=== PATIENT | female | born 1960 | race Caucasian/White ===

== ENCOUNTER 2017-11-07 12:25 | Day surgery (SDC) | payer OTHER ==
[2017-11-03 11:51] VITALS: BMI 36.6
[~2017-11-07 12:25] MED LIST: LACTATED RINGERS 1,000 ML IV SCH; LIDOCAINE 1% 20 ML VIAL (10MG/ML) FOR IV START INTRADERMA PRN
[2017-11-07 13:32] VITALS: RESP 16; TEMP 97.7
[2017-11-07] MEDS ORDERED: LIDOCAINE 1% INJ 10MG/ML (20 ML MDV) ONE (13:55)
[2017-11-07] MEDS ORDERED: PROPOFOL 10 MG/ML 20 ML VIAL IV ONE (13:55)
--- NOTE | 2017-11-07 14:28 | P.PCN ---
Date of Procedure: 11/07/17 Procedure(s) Performed: Procedure: Total colonoscopy. Preoperative diagnosis: Screening for neoplasia. Postoperative diagnosis: Exam within normal limits. Preparation: HalfLytely prep. Sedation: Was provided by anesthesia. Brief clinical history: The patient is a 57-year-old female who is scheduled for this evaluation for screening for neoplasia. She had no prior examination or any family history of colon cancer. The patient has no abdominal complaints , bleeding or anemia. Procedure: With the patient on her left lateral decubitus position and after informed consent and adequate sedation, the perianal area was inspected and it did not show any fissures or fistulas. There were no masses felt on digital rectal examination. The Olympus CFQ 160L video colonoscope was then inserted in the rectum in the usual fashion and advanced to the cecum. The mucosa appeared healthy. No polyps or tumors were seen. There was a rare small diverticular orifice seen in the sigmoid. The patient tolerated the procedure well. Plan: The patient was reassured. She will follow-up with you as planned and I recommended repeat exam in 10 years.
[2017-11-07 14:54] VITALS: BP 126/82; PULSE 74
== END 2017-11-07 15:29 | disposition home or self-care (01) ==
LOC: ORWHC2ENDO 12:25
DX: Z12.11 Encounter for screening for malignant neoplasm of colon (principal); K57.30 Diverticulosis of large intestine without perforation or abscess without bleeding; I10 Essential (primary) hypertension; F39 Unspecified mood [affective] disorder; Z88.5 Allergy status to narcotic agent; Z88.0 Allergy status to penicillin; Z79.899 Other long term (current) drug therapy
CPT/HCPCS: 45378; J2001; J2704

== ENCOUNTER → 2021-01-30 | Outpatient (CLI) | payer OTHER ==
[2021-01-30 16:00] LABS: Basophils # (A) 0.1 k/uL (0-0.2); Basophils % (A) 1 %; Eosinophils # (A) 0.2 k/uL (0-0.7); Eosinophils % (A) 2 %; HCT 38.7 % (34.0-46.0); Lymphocytes # (A) 2.1 k/uL (1.0-4.8); Lymphocytes % (A) 22 %; MCH 30.4 pg (25.0-35.0); MCHC 33.5 g/dL (31.0-37.0); MCV 90.8 fL (80.0-100.0); Mean Platelet Volume 8.2; Monocytes # (A) 0.4 k/uL (0-1.0); Monocytes % (A) 4 %; Neutrophils # (A) 6.5 k/uL (1.3-7.7); Neutrophils % (A) 70 %; Platelet Count 284 k/uL (150-450); RBC 4.26 m/uL (3.80-5.40); RDW 14.6 % (11.5-15.5); WBC 9.4 k/uL (3.8-10.6)
[2021-01-30 16:03] LABS: African American GFR (CKD) >90 (>60 ml/min/1.73 sqM); Anion Gap 7 mmol/L; Blood Urea Nitrogen 28 mg/dL (7-17); Carbon Dioxide 29 mmol/L (22-30); Chloride 101 mmol/L (98-107); Glucose 97 mg/dL (74-99); Non-African American GFR(CKD) 80 (>60 ml/min/1.73 sqM); Potassium 3.8 mmol/L (3.5-5.1); Sodium 137 mmol/L (137-145)
== END | disposition home or self-care (01) ==
LOC: LABPAT 15:14
PROVIDERS: ATTEND Obstetrics & Gynecology
DX: Z01.812 Encounter for preprocedural laboratory examination (principal); N81.10 Cystocele, unspecified; N81.6 Rectocele
CPT/HCPCS: 36415; 80051; 82565; 82947; 84520; 85025; 87086; 93005

== ENCOUNTER 2021-02-09 08:42 | Day surgery (SDC) | payer OTHER ==
[2021-02-04 09:43] VITALS: BMI 36.6
--- NOTE | 2021-02-05 16:15 | HP ---
HISTORY AND PHYSICAL DATE OF SURGERY: 02/09/2021 This is a 60-year-old white female who is complaining of an increasing bulge per the perineal body. The patient denies urinary loss, but has to splint the perineal body for complete evacuation of the bowels. She is menopausal and not taking hormones. She has had no vaginal bleeding. She is requesting surgical repair, declining the option of pessary use. PAST MEDICAL HISTORY: Past medical history is significant for depression, diverticulosis, genital herpes, hypertension, hypothyroidism, menorrhagia, scarlet fever, vertigo. PAST SURGICAL HISTORY: Ectopic removal in 1987, uterine ablation for menorrhagia, colonoscopy, D and C. CURRENT MEDICATIONS: 1. Lipitor 20 mg daily. 2. Pristiq 50 mg daily. 3. Synthroid 75 mcg daily. 4. Amlodipine 10 mg tablets once daily. 5. Hydrochlorothiazide 25 mg tablets once daily. ALLERGIES: ALLERGIES include AMPICILLIN; reaction is not noted. FAMILY HISTORY: Significant for hypertension, mental illness, thyroid issues. REPRODUCTIVE HISTORY: Normal spontaneous vaginal deliveries x3, all unremarkable, missed AB requiring D and C in the past. Ectopic in 1987. 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 She has never been a smoker and denies alcohol or drug use. She is . PHYSICAL EXAMINATION: Patient is 5 feet 2-1/2 inches, 208 pounds, BMI 37, blood pressure 132/84, pulse 73. HEENT exam reveals good dentition, no thyromegaly, no cervical lymphadenopathy. Breasts are bilaterally symmetric with no skin dimpling, nipple discharge, axillary adenopathy or discernible lesions or masses. CHEST: Clear to auscultation in all gaspar anteriorly and posteriorly. Cardiac exam reveals regular rate and rhythm with no murmur, click or rub. Abdomen is moderately obese. No organosplenomegaly. Active bowel sounds. No pain. No CVA tenderness. External genitalia is well estrogenized. There is a grade 3 cystocele, a grade 2-3 rectocele, and a grade 3-4 uterine prolapse appreciated. Adnexa are negative to deep palpation. Rectal exam reveals good tone, FIT-negative stool. No hemorrhoids or lesions. Extremities reveal no edema, good range of motion, good peripheral pulses. IMPRESSION: Increasingly symptomatic uterine prolapse, cystocele and rectocele. Patient requesting surgical repair. The patient understands the risks of bleeding, infection, perforation or damage to the bladder, ureters, blood vessels, bowels, etc. The option of BSO is reviewed if the ovaries appear abnormal. The patient would consent to this pending my judgment. She understands the risks of anesthesia, aspiration, nerve damage or even . Second opinion is offered and declined. The ACOG pamphlet on pelvic organ prolapse has been given to the patient and reviewed thoroughly. I believe patient understands our discussion with no reservation or issues. MMODL / IJN: [id number] /
[~2021-02-09 08:42] MED LIST changes: +DEXAMETHASONE SOD PHOSPHATE 4 MG/ML 1 ML VIAL IV ONE; -LACTATED RINGERS 1,000 ML IV SCH; +LIDOCAINE 1% (10MG/ML) FOR IV START INTRADERMA PRN; -LIDOCAINE 1% 20 ML VIAL (10MG/ML) FOR IV START INTRADERMA PRN; +ONDANSETRON 4 MG/2 ML VIAL IVP ONE; +SCOPOLAMINE 1.5MG/72HR PATCH TRANSDERM ONE
[2021-02-09] MEDS: LACTATED RINGERS 1,000 ML IV SCH ×2 (09:24→22:07)
[2021-02-09] MEDS ORDERED: MIDAZOLAM 2 MG/2 ML VIAL IV ONE (10:07)
[2021-02-09] MEDS ORDERED: fentaNYL (PF) 50 MCG/ML 2 ML AMP ONE (10:19)
[2021-02-09] MEDS ORDERED: LIDOCAINE 1% INJ 10MG/ML (20 ML MDV) ONE (10:19)
[2021-02-09] MEDS ORDERED: NEOSTIGMINE 1 MG/ML 10 ML VIAL ONE (10:19)
[2021-02-09] MEDS ORDERED: SUCCINYLCHOLINE CHLORIDE 100 MG/5 ML SYR IV ONE (10:19)
[2021-02-09] MEDS ORDERED: PROPOFOL 10 MG/ML 20 ML VIAL IV ONE (10:19)
[2021-02-09] MEDS ORDERED: ROCURONIUM 10 MG/ML (5 ML VIAL) IV ONE (10:19)
[2021-02-09] MEDS ORDERED: GLYCOPYRROLATE 0.2 MG/ML 2 ML VIAL ONE (10:19)
[2021-02-09] MEDS ORDERED: VASOPRESSIN 20 UNIT/ML 1 ML VIAL SQ ONE ×2 (10:40)
[2021-02-09] MEDS ORDERED: BACITRACIN ZINC 500 UNIT/GM OINT 28.4 GM TUBE TOPICAL ONE ×2 (10:40→11:41)
[2021-02-09] MEDS: HYDROmorphone 0.5 MG/0.5 ML SYRINGE IVP PRN ×3 (12:10→22:01)
[2021-02-09] MEDS ORDERED: diphenhydrAMINE 50 MG/ML 1 ML VIAL ONE (12:13)
[2021-02-09] MEDS ORDERED: diphenhydrAMINE 50 MG/ML 1 ML VIAL IVP ONE (12:16)
[2021-02-09] MEDS ORDERED: ZOLPIDEM 5 MG TAB PO PRN (12:19)
[2021-02-09] MEDS ORDERED: KETOROLAC 15 MG/ML 1 ML VIAL IVP PRN (12:19)
[2021-02-09] MEDS ORDERED: SIMETHICONE 80 MG CHEWABLE PO PRN (12:19)
--- NOTE | 2021-02-09 12:19 | P.OP ---
Date of Procedure: 02/09/21 Preoperative Diagnosis: Increasingly symptomatic uterine prolapse, cystocele and rectocele Postoperative Diagnosis: Same, normal-appearing ovaries bilaterally Procedure(s) Performed: Vaginal hysterectomy, anterior and posterior colporrhaphy's Anesthesia: NELLYA Surgeon: Elicia Tejeda Raftsman #1: Britney Farmer Estimated Blood Loss (ml): 75 IV fluids (ml): 500 Urine output (ml): 500 Pathology: other (Cervix and uterus) Condition: stable Disposition: PACU Operative Findings: Normal-appearing ovaries bilaterally Description of Procedure: Patient is brought to the [facility] and suite after Duramorph spinal was placed in the preoperative area. She's placed in the dorsal lithotomy position after anesthesia is given. The appropriate timeout is performed to assure proper patient and procedural identification. The cervix, vagina, perineal body and lower abdomen are all prepped and draped in usual sterile fashion. Antibiotics are given. Bladder is drained for approximately 500 mL of clear yellow urine. Weighted speculum was placed into the vagina. Anterior lip of the cervix is grasped with a double-tooth tenaculum. Cervix is injected circumferentially with a dilute Pitressin solution. [place] blade scalpel is used circumferentially around the cervix with a V positioning at 6:00. Sponge rolled finger is used to sweep at all times well from the operative field to avoid bladder and/or ureteral injury. Peritoneum is entered at 6:00 and suture tied with 2-0 Vicryl, held with a hemostat. The large billed speculum is then placed into the peritoneal cavity. Again mucosa is swept well from the operative field. Uterosacral ligament on the right is identified, clamped cut and suture ligated. Sutures held with a hemostat. Same procedure is carried out contralaterally. Uterine vasculature is skeletonized, clamped cut and suture ligated. 2 additional pedicles are taken superior to the vessels. Anterior peritoneum was entered at 12:00 with a Metzenbaum scissor. Santi clamps are used across the final pedicles and the cervix and uterus are removed and sent to pathology for evaluation. The pedicles are tied with 0 Vicryl suture in a Darby stitch, flashed, and retied for excellent hemostasis. Sponge stick is then used and the pedicles are all visualized, ovaries are visualized, and all is hemostatically intact and within normal limits to inspection. Speculum is then changed to the shallow billed speculum. 2-0 Vicryl suture is brought around in a pursestring fashion to close the peritoneum. The previously held uterosacral ligaments are brought across to incorporate the opposite ligament as well as vaginal mucosa. 2 additional ocovwj-js-dmvyz sutures of 0 Vicryl are used to close the vaginal cuff. The anterior repair is then started, Allis clamps are used on the mucosal defect. The mucosa is injected in the midline with the same dilute Pitressin solution. Metzenbaum scissors are used to open the mucosa to approximate 1.5 cm inferior to the urethra. Seay catheter is then placed in the bladder is drained. Sponge rolled finger is used to separate the underlying fascial plane from the overlying mucosa. 2-0 Vicryl sutures used in an interrupted fashion to bring the fascial edges together in the midline thereby completely reducing the cystocele. Metzenbaum scissors are used to trim the redundant mucosa. 2-0 Vicryl suture is used in a running locking stitch to close the anterior repair for excellent reapproximation and hemostasis. A triangular portion of tissue is then removed with a scalpel and the posterior repair is started. The posterior vaginal mucosa was injected with the same dilute Pitressin solution. Metzenbaum scissors are used in the midline to open the mucosa to the apex of the defect. Allis clamps are used to hold the tissue bilaterally. Sponge rolled finger is used to sweep the fascial edge from the overlying mucosa. 2-0 Vicryl sutures used to bring the edges together, completely reducing the rectocele. Metzenbaum scissors are used to trim the redundant mucosa. 2-0 Vicryl is used in a running locking stitch to complete the repair with an episiotomy-like closure at the end. Vagina is clean and dry, packed with one-inch iodophor gauze with basic tracing. All sponge needle and enhancement counts are correct. Rectal exam reveals no foreign bodies or stitch material. Seay is still draining clear urine. Patient is brought back to recovery room in very good condition with stable vital signs including blood pressure 127/82, pulse 96, 100% O2 saturation.
--- NOTE | 2021-02-09 16:07 | P.ANPRN ---
Procedure Note - Anesthesia - Epidural/Spinal Spinal Date of Procedure: 02/09/21 Procedure Start Time: 09:14 Procedure Stop Time: :25 Location of Patient: OR Indication: Acute Post-Operative Pain Sedation Type: Sedate with meaningful contact maintained Preparation: Sterile Prep Number of Attempts: 1 Position: Sitting Catheter: None Needle Guage: 25 Injectate: Other (Duramorph 0.3mg & Fentanyl 25mcg) Narrative: Aseptic, atraumatic injection technique. Midline @ L3-4. 25g tuohy needle utilized. Clear, free flow of CSF noted. Blood Aspirated: No Pain Paresthesia on Injection Noted: No Events: Uneventful and Well Tolerated
[2021-02-09] MEDS: diphenhydrAMINE 50 MG/ML 1 ML VIAL IVP PRN (18:00)
[2021-02-09] MEDS: IBUPROFEN 600 MG TAB PO PRN (21:38)
[2021-02-09] MEDS: ONDANSETRON 4 MG/2 ML VIAL IVP PRN (22:03)
[2021-02-10] MEDS: diphenhydrAMINE 50 MG/ML 1 ML VIAL IVP PRN (02:38)
[2021-02-10] MEDS: METOCLOPRAMIDE 5 MG/ML 2 ML VIAL IVP PRN ×2 (02:38→08:08)
[2021-02-10] MEDS: ONDANSETRON 4 MG/2 ML VIAL IVP PRN (05:36)
[2021-02-10] MEDS ORDERED: ACETAMINOPHEN IV (For NPO) 1,000 MG in EMPTY BAG 1 BAG IVPB STA (07:33)
--- NOTE | 2021-02-10 08:07 | P.DS ---
Providers Date of admission: 02/09/21 Expected date of discharge: 02/10/21 Attending physician: Elicia Tejeda Primary care physician: [facility] Course: This is a 60-year-old white female who presented with increasingly symptomatic uterine prolapse, cystocele and rectocele. She requested surgical repair, declining option for pessary use. Please see dictated history and physical for details. Yesterday under my care she underwent a vaginal hysterectomy, anterior and posterior colporrhaphy. Vaginal packing was placed, Seay catheter placed. She did well intraoperatively with an estimated blood loss of 75 mL's. Ovaries were left in situ per her wishes. Please see my dictated operative note for details. Through the night patient had multiple bouts of emesis. This morning she is reporting a headache. There is no CVA tenderness, the abdomen is soft and nontender, positive flatus. Seay catheter and vaginal packing had been removed. We are awaiting a spontaneous void. Emesis is improved this morning after Zofran. We will proceed with dietary advancement, discontinuation of the IV, and increased activity including shower. My plan would be for discharge home later this afternoon when patient feels improved. She will follow-up with me in the office in 2 weeks. I reminded her no intercourse, tampons or douching. She will use tlqh-clw-eeszfix products such as Advil or Aleve, or Motrin as needed for pain. She is instructed to call with any fevers shakes or chills, foul smelling or bloody vaginal drainage, with difficulties with urination or defecation. She is reminded to keep the stools soft, not to strain at the commode. No driving for 2 weeks. Assessment: Doing well postoperative day #1 Patient Condition at Discharge: Good Plan - Discharge Summary Discharge Rx Participant: No New Discharge Prescriptions: No Action amLODIPine [Norvasc] 10 mg PO DAILY hydroCHLOROthiazide 50 mg PO HS Desvenlafaxine Succinate [Pristiq] 50 mg PO QAM Discharge Medication List Desvenlafaxine Succinate [Pristiq] 50 mg PO QAM 11/03/17 [History] amLODIPine [Norvasc] 10 mg PO DAILY 11/03/17 [History] hydroCHLOROthiazide 50 mg PO HS 11/03/17 [History] Follow up Appointment(s)/Referral(s): Elicia Tejeda MD [STAFF PHYSICIAN] - 2 Weeks Discharge Disposition: HOME SELF-CARE
[2021-02-10] MEDS ORDERED: DESVENLAFAXINE SUCCINATE 50 MG TAB.ER.24H PO SCH (09:00)
--- NOTE | 2021-02-10 09:01 | P.PN ---
Progress Note - Text Progress Note Date: 02/10/21 Patient seen at 0700. POD#1 TVH with GA/spinal duramorph for post-op pain management. Patient complains of headache that began in the middle of the night. VAS 6/10. Also complains of nausea which has persisted through the night. No complaints of surgical pain. Patient denies vomitting, diplopia and tinnitus. When seated on the side of the bed, patient felt dizzy and is uncertain about postural component to her headache. Discussed with patient at length regarding possible post-dural puncture headache due to history of placement of spinal duramorph. Discussed conservative management vs invasive management (blood patch) for PDPH. At this time would recommend conservative management for 24 hours inclusive of IV/oral hydration, caffeine intake and po analgesics as needed. If headache continues to persist or changes in nature that is more suggestive of PDPH (tinnitus, diplopia, postural change in headache) then will consider blood patch at that time. Will follow up as indicated.
--- NOTE | 2021-02-10 09:29 | P.PN ---
Progress Note - Text Progress Note Date: 02/10/21 Addendum to prior note: Spoke with RN taking care of the patient. She reports nausea/vomitting throughout the night. Patient unable to take in po hydration. With her history of nausea/vomitting, NPO statue and dizziness in upright position, headache would be more suggestive of symptom due to dehydration rather than PDPH. Recommend IV bolus of 500 mL, caffeine as tolerated and IV Zofran for the nausea and vomitting. If patient is not discharged today or headache becomes worse and symptoms more suggestive of PDPH occur, will consider blood patch tomorrow. Will follow up as indicated.
[2021-02-10] MEDS ORDERED: LACTATED RINGERS 1,000 ML IV SCH (10:30)
[2021-02-10] MEDS: IBUPROFEN 600 MG TAB PO PRN ×2 (11:55→18:19)
[2021-02-10] MEDS: ACETAMINOPHEN TAB 325 MG TAB PO PRN ×2 (15:58→21:47)
[2021-02-11] MEDS: IBUPROFEN 600 MG TAB PO PRN ×2 (01:22→06:30)
[2021-02-11] MEDS: ACETAMINOPHEN TAB 325 MG TAB PO PRN (03:54)
[2021-02-11] MEDS: LACTATED RINGERS 1,000 ML IV SCH (06:04)
[2021-02-11 07:40] VITALS: BP 132/77; PULSE 79; RESP 18; TEMP 97.9
== END 2021-02-11 08:00 | disposition home or self-care (01) ==
LOC: OR 08:42 → 4FBP 12:30 → OR 02-11 08:00
PROVIDERS: ATTEND Obstetrics & Gynecology
DX: N81.6 Rectocele (principal); N81.4 Uterovaginal prolapse, unspecified; N81.10 Cystocele, unspecified; N85.8 Other specified noninflammatory disorders of uterus; R11.10 Vomiting, unspecified; R50.9 Fever, unspecified; F41.9 Anxiety disorder, unspecified; R51.9 Headache, unspecified; R68.83 Chills (without fever)
CPT/HCPCS: 57250; 58260; 86900; 86901; 88305; 86850; J2250; J1200 ×2; J2710; J2765; J0690; J2405 ×2; J2001; J3010; J0131; J1885; J0330; J2704; J1170

== ENCOUNTER → 2021-04-23 | Outpatient (CLI) | payer OTHER ==
--- NOTE | 2021-04-23 16:24 | CONS ---
CONSULTATION DATE OF SERVICE: 04/23/2021 This 60-year-old lady has been evaluated in Sleep Center for possible obstructive sleep apnea-hypopnea syndrome. HISTORY OF PRESENT ILLNESS/SLEEP-WAKE EVALUATION: Patient's usual sleep schedule is from 10 p.m. to 5 a.m. on weekdays and from 1 a.m. until 9 a.m. on weekends. Sometimes she has problems with falling asleep, although no TV in bedroom. She usually sleeps on the side position. According to her , she has loud snoring, witnessed episodes of stopped breathing during sleep. The patient wakes up from sleep 3 times with 2 episodes of nocturia, episodes of gasping for air, restless legs, sweating. No history of hypnagogic hallucinations, sleep paralysis or cataplexy. In the morning the patient wakes up tired, has difficulties paying attention, worries about her sleep, has problems with memory, irritability, depression and anxiety. She may take one nap around 3 p.m. [place] Sleepiness Scale is 4. PAST MEDICAL HISTORY: Positive for hypertension, arthritis of the knees, hands and hips, hypothyroidism, headaches. MEDICATIONS: Amlodipine, Pristiq, thyroid supplement. Patient does not remember the doses of medications. PAST SURGICAL HISTORY: Hysterectomy. FAMILY HISTORY: Arthritis. SOCIAL HISTORY: Negative for smoking. Alcohol consumption occasional. REVIEW OF SYSTEMS: Multiple awakenings from sleep, snoring, gasping for air during sleep, episodes of sleepiness. No fevers. No double vision. No recent chest pain. No shortness of breath. No abdominal pain. No bleeding episodes. No blood in the urine. No seizure episodes. PHYSICAL EXAMINATION: GENERAL: Pleasant lady without distress. VITAL SIGNS: BP 116/83, HR 73, RR 15, height 5 feet 2 inches, weight 219.8, body mass index 39.1, temperature 97.5, oxygen saturation at room air 97%. HEENT: PERRLA, EOMI, evaluation of oropharynx showed tongue protrudes midline. Low position of soft palate; Mallampati III to IV. NECK: Supple, no JVD. Thyroid is not palpable. Neck measures 14-1/4 inches in circumference. LUNGS: Clear to percussion and to auscultation. Good air exchange. No wheezing or rhonchi. HEART: S1, S2 regular. No murmurs, gallops, or rubs. ABDOMEN: Obese. EXTREMITIES: No clubbing or cyanosis. ICE GUARD INSPECTOR: Awake, alert, and oriented X3. Cranial nerves 2 to 7 intact. There is no fasciculation or atrophy. noted. No focal deficits observed. IMPRESSION: 1. Loud snoring, witnessed episodes of stopped breathing during sleep, multiple awakenings from sleep with gasping for air and nocturia, low position of soft palate, Mallampati III to IV; obstructive sleep apnea-hypopnea syndrome. 2. Obesity; body mass index 39.1. 3. Restless legs syndrome. 4. Hypertension. 5. History of knee arthritis. 6. History of hip arthritis. 7. History of hand arthritis. 8. Hypothyroidism. 9. Headaches. 10.Status post hysterectomy. PLAN: 1. Polysomnography for evaluation of patient's breathing during sleep. 2. CPAP/BiPAP titration if sleep study confirms obstructive sleep apnea-hypopnea syndrome. 3. Preferable position during sleep on the side. 4. No driving if patient feels any sleepiness. 5. I will see patient for follow up visit to explain results of testing and following plan. Thank you very much for referring this patient for consultation. Sincerely, Cruz Samuels MD, PhD, FAASM Diplomat of [employer] [place] [employer] Sleep Medicine Board of [place] [facility] [place] MMODL / FRANCEN: [id number] /
== END | disposition home or self-care (01) ==
LOC: SLEEP 14:34
PROVIDERS: ATTEND Internal Medicine
DX: G47.33 Obstructive sleep apnea (adult) (pediatric) (principal); E66.9 Obesity, unspecified; G25.81 Restless legs syndrome; I10 Essential (primary) hypertension; E03.9 Hypothyroidism, unspecified; R51.9 Headache, unspecified
CPT/HCPCS: 99211

== ENCOUNTER → 2021-09-10 | Outpatient (CLI) | payer OTHER ==
--- NOTE | 2021-09-10 19:05 | SFUN ---
SLEEP CENTER FOLLOW UP NOTE DATE OF SERVICE: 09/10/2021 This 61-year-old lady has been followed in Sleep Center for treatment of obstructive sleep apnea-hypopnea syndrome. Recently the patient had a polysomnogram which documented moderate obstructive sleep apnea-hypopnea syndrome, and she had CPAP titration. Subsequently I ordered for her a CPAP unit. Today is her first visit after her CPAP therapy was started. The patient is able to use CPAP treatment. She sleeps better with the machine, but she still does not feel comfortable with her mask. Currently she is using a full-face mask. [place] Sleepiness Scale today is 6. I checked information about her machine. Usage is 23/ nights for more than 4 hours, average 7 hours 56 minutes, which is good compliance. Pressure in the machine is in the range of 5 to 12 cm of water, average pressure 11.9 cm of water. Leak is 4.6 L/minute 95% of the time, which is in normal range. Apnea-hypopnea index is 4.0, which is in normal range. I extensively discussed with the patient recommendations for using her CPAP unit. MEDICATIONS: Amlodipine, Pristiq, thyroid supplement. PHYSICAL EXAMINATION: GENERAL: Pleasant patient in no distress. VITAL SIGNS: BP 118/76, HR 81, RR 16, weight 238.4, height 5 feet 2 inches, temperature 97.4, oxygen saturation at room air 98%. HEENT: PERRLA, EOMI, evaluation of oropharynx showed tongue protrudes midline. Low position of soft palate; Mallampati III to IV. NECK: Supple, no JVD. Thyroid is not palpable. LUNGS: Clear to percussion and to auscultation. Good air exchange. No wheezing or rhonchi. HEART: S1, S2 regular. No murmurs, gallops, or rubs. ABDOMEN: Obese. EXTREMITIES: No clubbing or cyanosis. SAWSMITH: Awake, alert, and oriented X3. Cranial nerves 2 to 7 intact. There is no fasciculation or atrophy. noted. No focal deficits observed. IMPRESSION: 1. Moderate obstructive sleep apnea-hypopnea syndrome; apnea-hypopnea index 15.6, 56 in REM sleep with oxygen desaturation to 58.8%. Patient demonstrated good compliance with treatment, benefitting from treatment. She feels some discomfort related to her mask. 2. Hypertension. 3. History of knee arthritis. 4. Hypothyroidism. 5. Headaches. 6. Status post hysterectomy. PLAN: 1. I discussed with the patient the position of the machine and usage of humidifier. 2. Prescription for a trial with a nasal pillow mask, AirFit P10. 3. Patient will continue to use PAP equipment every night for the whole night. 4. Sleep hygiene with regular time in bed for at least 7-1/2 to 8 hours. 5. Precautions related to driving. No driving if feeling sleepiness. 6. I will maintain all necessary prescription for PAP supplies including mask, tube, filters. 7. Watching weight. 8. Follow-up visit in 6 months or earlier if patient has any problems. Thank you very much for allowing me to participate in the management of your patient. Sincerely, Cruz Samuels MD, PhD, FAASM Diplomat of [place] [employer] Sleep Medicine Board of [place] [employer] [facility] [place] MMAISHAL / FRANCEN: [id number] /
== END ==
LOC: SLEEP 13:41
PROVIDERS: ATTEND Internal Medicine
DX: G47.33 Obstructive sleep apnea (adult) (pediatric) (principal); I10 Essential (primary) hypertension; E03.9 Hypothyroidism, unspecified; R51.9 Headache, unspecified; Z87.39 Personal history of other diseases of the musculoskeletal system and connective tissue; Z90.711 Acquired absence of uterus with remaining cervical stump

== ENCOUNTER 2021-09-16 08:36 | Observation (INO) | payer OTHER ==
[2021-09-16] MEDS ORDERED: KETOROLAC 15 MG/ML 1 ML VIAL IVP STA (09:24)
--- NOTE | 2021-09-16 09:52 | ED ---
Chest Pain HPI - General Chief Complaint: Chest Pain Stated Complaint: Upper Abd Pain Time Seen by Provider: 09/16/21 08:57 Source: patient, RN notes reviewed Mode of arrival: ambulatory Limitations: no limitations - History of Present Illness Initial Comments: 7-year-old female presents with complaints of epigastric pain that started last night mid epigastric with some radiation to the left breast area also to the back she has a difficult time describing the nature of the pain however she states it is as bad as it as a/10 pain. He felt a bubble she states in the midepigastrium she has no known history of heart lung or gallbladder disease that she does have a history of GERD. Acid was 6 AM yesterday morning no nausea vomiting no shortness of breath as he seems to make the pain better food does seem irritated. MD Complaint: chest pain, other - Related Data Home Medications Medication Instructions Recorded Confirmed Desvenlafaxine Succinate [Pristiq] 50 mg PO DAILY 11/03/17 09/16/21 amLODIPine [Norvasc] 10 mg PO DAILY 11/03/17 09/16/21 Famotidine [Pepcid AC] 10 mg PO BID PRN 09/16/21 09/16/21 Levothyroxine Sodium [Synthroid] 75 mcg PO DAILY 09/16/21 09/16/21 hydroCHLOROthiazide [Hydrodiuril] 25 mg PO DAILY 09/16/21 09/16/21 Allergies Allergy/AdvReac Type Severity Reaction Status Date / Time ampicillin Allergy Rash/Hives Verified 09/16/21 11:08 codeine AdvReac Nausea & Verified 09/16/21 11:08 Vomiting steroid AdvReac "made me Uncoded 09/16/21 08:41 aggresive" Review of Systems ROS Statement: Those systems with pertinent positive or pertinent negative responses have been documented in the HPI. ROS Other: All systems not noted in ROS Statement are negative. EKG Findings - EKG Results: EKG: interpreted by SANKET, sinus rhythm (Sinus rhythm a 68. We'll 176 QRS duration 118 QT since QTC 470/434 moderate interventricular conduction delay) Past Medical History Past Medical History: Hypertension Additional Past Medical History / Comment(s): anxiety History of Any Multi-Drug Resistant Organisms: None Reported Past Surgical History: Tubal Ligation Additional Past Surgical History / Comment(s): sx for ovarian cysts Past Anesthesia/Blood Transfusion Reactions: Postoperative Nausea & Vomiting (PONV) Past Psychological History: Anxiety, Panic Disorder Smoking Status: Never smoker Past Alcohol Use History: Occasional Past Drug Use History: None Reported - Past Family History Mother Family Medical History: No Reported History General Exam - General Exam Comments Initial Comments: This is a well-developed well-nourished awake alert oriented 3 female Limitations: no limitations General appearance: alert, anxious Head exam: Present: atraumatic, normocephalic, normal inspection Eye exam: Present: normal appearance, PERRL, EOMI. Absent: scleral icterus, conjunctival injection, periorbital swelling ENT exam: Present: normal exam, mucous membranes moist Neck exam: Present: normal inspection, full ROM, other. Absent: tenderness, meningismus, lymphadenopathy Respiratory exam: Present: normal lung sounds bilaterally. Absent: respiratory distress, wheezes, rales, rhonchi, stridor Cardiovascular Exam: Present: regular rate, normal rhythm, normal heart sounds. Absent: systolic murmur, diastolic murmur, rubs, gallop, clicks GI/Abdominal exam: Present: soft, normal bowel sounds. Absent: distended, tenderness, guarding, rebound, rigid, bruit (No stridor JVD or bruits), pulsatile mass Extremities exam: Present: normal inspection, full ROM, normal capillary refill. Absent: tenderness, pedal edema, joint swelling, calf tenderness Back exam: Present: normal inspection Neurological exam: Present: alert, oriented X3, CN II-XII intact Psychiatric exam: Present: normal affect, normal mood Skin exam: Present: warm, dry, intact, normal color. Absent: rash Course Vital Signs 09/16/21 09/16/21 08:38 10:31 Temperature 96.9 F L 97.4 F L Pulse Rate 84 61 Respiratory 18 18 Rate Blood Pressure 134/87 123/83 O2 Sat by Pulse 98 98 Oximetry Chest Pain MDM - MDM Imaging reviewed including ultrasound negative patient still has episodes of pain with radiation I did a long discussion with her regarding the findings cardiac disease as not ruled out as well as GI disease I did recommend we admit with consults from both services. Patient is in agreement patient will be admitted to the [facility] as it is a observation bed. Disposition Clinical Impression: Atypical chest pain, Abdominal pain Disposition: ADMITTED IP TO THIS HOSP Condition: Fair Referrals: Ashlee Celestin III, MD [Primary Care Provider] - 1-2 days
[2021-09-16 09:53] LABS: Basophils % (A) 1 %; Eosinophils # (A) 0.2 k/uL (0-0.7); Eosinophils % (A) 2 %; HCT 41.5 % (34.0-46.0); HGB 13.4 gm/dL (11.4-16.0); Lymphocytes # (A) 1.5 k/uL (1.0-4.8); Lymphocytes % (A) 17 %; MCH 29.3 pg (25.0-35.0); MCHC 32.3 g/dL (31.0-37.0); MCV 90.7 fL (80.0-100.0); Mean Platelet Volume 7.8; Monocytes # (A) 0.4 k/uL (0-1.0); Monocytes % (A) 5 %; Neutrophils # (A) 6.4 k/uL (1.3-7.7); Neutrophils % (A) 75 %; Platelet Count 266 k/uL (150-450); RBC 4.58 m/uL (3.80-5.40); RDW 14.3 % (11.5-15.5); WBC 8.6 k/uL (3.8-10.6)
--- NOTE | 2021-09-16 09:54 | XR ---
EXAMINATION TYPE: XR chest 2V DATE OF EXAM: 09/16/2021 COMPARISON: NONE HISTORY: Chest pain. TECHNIQUE: Frontal and lateral views of the chest are obtained. FINDINGS: There is no focal air space opacity, pleural effusion, or pneumothorax seen. The cardiac silhouette size is within normal limits. Slight underlying scoliotic curvature. IMPRESSION: No acute process.
[2021-09-16 10:06] LABS: Partial Thromboplastin Time 24.4 sec (22.0-30.0); Prothrombin Time 10.4 sec (9.0-12.0)
[2021-09-16 10:13] LABS: ALT 24 U/L (4-34); African American GFR (CKD) >90 (>60 ml/min/1.73 sqM); Albumin 4.3 g/dL (3.5-5.0); Anion Gap 10 mmol/L; Blood Urea Nitrogen 14 mg/dL (7-17); Calcium 8.8 mg/dL (8.4-10.2); Carbon Dioxide 24 mmol/L (22-30); Chloride 104 mmol/L (98-107); Glucose 88 mg/dL (74-99); Lipase 49 U/L (23-300); Non-African American GFR(CKD) >90 (>60 ml/min/1.73 sqM); Sodium 138 mmol/L (137-145); Total Bilirubin 0.8 mg/dL (0.2-1.3); Total Protein 7.5 g/dL (6.3-8.2)
[2021-09-16 10:22] LABS: Potassium 4.1 mmol/L (3.5-5.1)
[2021-09-16 10:23] LABS: AST 31 U/L (14-36); Alkaline Phosphatase 114 U/L (38-126); Magnesium 2.1 mg/dL (1.6-2.3)
[2021-09-16] MEDS ORDERED: NITROGLYCERIN SL TABS 0.4 MG TAB SUBLINGUAL STA (10:36)
[2021-09-16] MEDS ORDERED: FAMOTIDINE 20 MG/2 ML VIAL IV STA (11:39)
[2021-09-16] MEDS ORDERED: MAG HYDROX/AL HYDROX/SIMETH 30 ML, HYOSCYAMINE ELIXIR 10 ML, LIDOCAINE VISCOUS 2% 10 ML PO STA ×3 (11:39)
--- NOTE | 2021-09-16 12:38 | US ---
EXAMINATION TYPE: US gallbladder DATE OF EXAM: 09/16/2021 COMPARISON: NONE CLINICAL HISTORY: Epigastric pain. EC patient with severe epigastric pain/ LUQ pain today. EXAM MEASUREMENTS: Liver Length: 11.8 cm Gallbladder Wall: 0.3 cm CBD: 0.5 cm Right Kidney: 10.2 x 7.0 x 4.3 cm Pancreas: hyperechoic Liver: no masses seen Gallbladder: wnl Evidence for sonographic Ulloa's sign: no CBD: wnl Right Kidney: No hydronephrosis or masses seen At LUQ area of pain: bowel gas is noted by US. Visualized pancreas appears within normal limits. Visualized liver is homogeneous without worrisome m ass or ductal dilatation. No Biliary dilatation. Gallbladder within normal limits. No right-sided hyd ronephrosis. Scanning of the left upper quadrant shows shadowing bowel gas. IMPRESSION: No gallstones or ultrasound evidence for acute cholecystitis.
[2021-09-16] MEDS ORDERED: NITROGLYCERIN SL TABS 0.4 MG TAB SUBLINGUAL PRN (15:16)
[2021-09-16] MEDS ORDERED: FAMOTIDINE 20 MG TAB PO PRN (16:34)
[2021-09-16] MEDS ORDERED: ACETAMINOPHEN TAB 325 MG TAB PO PRN (16:36)
[2021-09-16] MEDS ORDERED: MAG HYDROX/AL HYDROX/SIMETH 30 ML, HYOSCYAMINE ELIXIR 10 ML, LIDOCAINE VISCOUS 2% 10 ML PO ONE ×3 (17:07)
[2021-09-16] MEDS ORDERED: PROCHLORPERAZINE INJ 10 MG/2 ML VIAL IVP PRN (17:08)
[2021-09-16] MEDS: SODIUM CHLORIDE 0.9% 1,000 ML IV SCH (17:19)
[2021-09-16] MEDS ORDERED: MORPHINE SULFATE 4 MG/ML SYRINGE IV PRN (17:29)
--- NOTE | 2021-09-16 17:29 | P.HPIM ---
History of Present Illness H&P Date: 09/16/21 History of Presenting Illness: Patient is a very pleasant 61-year-old female with a past medical history of hypertension, hypothyroidism, anxiety and GERD. She presented to the emergency department with epigastric pain/discomfort radiating beneath left breast. Patient reports she has a history of gastric reflux, but states she has not had a problem with this in many many years. She states over the past 4-5 weeks her heartburn and acid reflux has literally "Blown up". Patient states over the past 4-5 weeks she has been getting significant reflux and heartburn daily. Timo garduno reports yesterday morning starting out like an atypical morning, states that she ate a bowl of cereal and drinks some coffee and went to work. Patient states that shortly after 6 AM she began having the significant sharp burning pain to the mid epigastric region. Patient reports this pain has been continuous and accompanied by nausea. Patient describes this pain as a burning sensation that will not go away. She states this pain feels as if it goes straight through to her back and just beneath her left breast. She denies any fevers, chills, diaphoresis, episodes of vomiting, excessive belching, chest pain, palpitations, shortness of breath, or cough. Patient denies history of previously known ulcers. Denies palpation or movement making this pain worse, pt unclear whether or not pain increases with oral intake. In the emergency department, patient was seen and fully evaluated. EKG completed revealing normal sinus rhythm at 68 bpm with no noted T-wave or ST abnormalities. CBC, coags, CMP, lipase, d-dimer, and troponin all unremarkable. Chest x-ray negative for acute cardiopulmonary process. Abdominal ultrasound the gallbladder negative showing no evidence of gallstones or signs of acute cholecystitis. Patient received a GI cocktail in ER at 11:00 this morning in w [place] she reports did "take the edge off" her pain. Patient is currently admitted under our services with consultation to cardiology and gastroenterology. Review of systems: Pertinent positives and negatives as discussed in HPI, a complete review of systems was performed and all other systems are negative. Physical exam: Vital signs reviewed and stable. General: Nontoxic, no distress and appears stated age. Derm: Skin warm and dry, normal coloration for ethnicity. Head: Atraumatic, normocephalic and symmetric. Eyes: EOMs intact, no lid lag, and anicteric sclera Mouth: no lip lesions, mucus membranes moist Cardiovascular: regular rate and rhythm with normal S1S2, no murmur, positive posterior tibial pulses bilaterally, and cap refill < 2 seconds. Lungs: Respirations even, regular, and unlabored on room air. Lungs CTA bilaterally, no rhonchi, no rales, no wheezing, and no accessory muscle usage. Abdominal: soft obese abdomen , nontender to palpation, no guarding, no apprecia ble organomegaly Ext: ROM intact. No gross muscle atrophy, patient with slight bilateral lower extremity edema (reports chronic denies any increase or changes in swelling in years) no contractures Neuro: Speech clear, face symmetrical and CN II-XII grossly intact with no noted focal neuro deficits Psych: Alert and oriented to person, place, time, and situation. Appropriate and pleasant affect. Assessment and Plan of Care: Epigastric pain History of GERD -Cardiology consulted to rule out ACS -Gastroenterology consulted secondary to concerns of possible ulcer -Telemetry monitoring -Trend troponins -NPO with the exception of ice chips and medications pending evaluation by GI -Protonix 40 mg IVP twice daily, Carafate 1 g before meals at bedtime -Lipid profile with a.m. labs. -Gentle hydration with IV fluids Hypertension -Monitor vital signs and continue daily medication regimen with amlodipine. Hypothyroidism -Continue daily medication regimen with levothyroxine 75 g each morning. The patient is admitted with an anticipated less than 2 midnight stay for evaluation of epigastric pain CODE STATUS: Full code DVT prophylaxis: Heparin Discussed with: Patient and RN Anticipated discharge date: 1-[address]:: Home A total of 40 minutes was spent on the care of this complex patient more than 50% of the time was spent in counseling and care coordination. Patient seen and examined independently. Patient was also seen by Baljit Flores NP and case was discussed. I am in agreement with subjective, physical exam, assessment and plan as written above and amended below. Patient states that she's been having acid reflux for approximately one month it is worsening in nature. It causes her to double over in pain. In today her pain was unbearable. 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 General: non toxic, no distress, appears at stated age Derm: warm, dry Head: atraumatic, normocephalic, symmetric Eyes: EOMI, no lid lag, anicteric sclera Mouth: no lip lesion, mucus membranes moist Cardiovascular: S1S2 reg, no murmur, positive posterior tibial pulse bilateral, Lungs: CTA bilateral, no rhonchi, no rales , no accessory muscle use Abdominal: soft, + tender to palpation epigastric, no guarding, no appreciable organomegalyactures] Neuro: CN II-XI grossly intact, no focal neuro deficits Psych: Alert, oriented, appropriate affect Past Medical History Past Medical History: GERD/Reflux, Hypertension, Sleep Apnea/CPAP/BIPAP, Thyroid Disorder Additional Past Medical History / Comment(s): PAUL with Cpap use, diverticular disease, migraines, hypothyroid. History of Any Multi-Drug Resistant Organisms: None Reported Past Surgical History: Hysterectomy, Tubal Ligation Additional Past Surgical History / Comment(s): D&C, surgery for ectopic /ovarian cyst, uterine ablation, vaginal hysterectomy with cystocele /rectocele, colonoscopy Past Anesthesia/Blood Transfusion Reactions: Postoperative Nausea & Vomiting (PONV) Additional Past Anesthesia/Blood Transfusion Reaction / Comment(s): Severe PONV. Clausterphobia. Past Psychological History: Anxiety, Depression, Panic Disorder Additional Psychological History / Comment(s): Pt resides alone. She is independent. Smoking Status: Never smoker Past Alcohol Use History: Occasional Past Drug Use History: None Reported - Past Family History Mother Family Medical History: No Reported History Additional Family Medical History / Comment(s): Mother is 93 yrs old and healthy Father History Unknown: Yes Additional Family Medical History / Comment(s): Father in a MVA when pt was 5 yrs old. Medications and Allergies Home Medications Medication Instructions Recorded Confirmed Type Desvenlafaxine Succinate [Pristiq] 50 mg PO DAILY 11/03/17 09/16/21 History amLODIPine [Norvasc] 10 mg PO DAILY 11/03/17 09/16/21 History Famotidine [Pepcid AC] 10 mg PO BID PRN 09/16/21 09/16/21 History Levothyroxine Sodium [Synthroid] 75 mcg PO DAILY 09/16/21 09/16/21 History hydroCHLOROthiazide [Hydrodiuril] 25 mg PO DAILY 09/16/21 09/16/21 History Allergies Allergy/AdvReac Type Severity Reaction Status Date / Time ampicillin Allergy Rash/Hives Verified 09/16/21 11:08 codeine AdvReac Nausea & Verified 09/16/21 11:08 Vomiting steroid AdvReac "made me Uncoded 09/16/21 08:41 aggresive" Physical Exam Osteopathic Statement: *. No significant issues noted on an osteopathic structural exam other than those noted in the History and Physical/Consult. Vitals: Vital Signs Temp Pulse Resp BP Pulse Ox 09/16/21 10:31 97.4 F L 61 18 123/83 98 09/16/21 08:38 96.9 F L 84 18 134/87 98 Intake and Output 09/16/21 09/16/21 09/16/21 06:59 14:59 22:59 Other: Weight 99.79 kg 99.79 kg Results CBC & Chem 7: 09/16/21 09:21 09/16/21 09:21 Thrombosis Risk Factor Assmnt - Choose All That Apply Any of the Below Risk Factors Present?: Yes Each Factor Represents 1 point: Age 41-60 years, Obesity (BMI >25) Other Risk Factors: No Other congenital or acquired thrombophilia - If yes, enter type in comment: No Thrombosis Risk Factor Assessment Total Risk Factor Score: 2 Thrombosis Risk Factor Assessment Level: Low Risk
[2021-09-16 17:52] LABS: Appearance,Urine Cloudy (Clear); Bilirubin,Urine Negative (Negative); Blood,Urine Negative (Negative); Color,Urine Light Yellow; Glucose,Urine (UA) Negative (Negative); Ketones,Urine Negative (Negative); Leukocyte Esterase,Urine Moderate (Negative); Mucus,Urine Rare /hpf; Nitrite,Urine Negative (Negative); PH, Urine 7.5 (5.0-8.0); Protein,Urine Negative (Negative); RBC,Urine 1 /hpf (0-5); Squamous Epithelial Cell,Urine 10 /hpf (0-4); Urobilinogen,Urine <2.0 mg/dL (<2.0); WBC,Urine 11 /hpf (0-5)
[2021-09-16] MEDS: SUCRALFATE 1 GM TAB PO SCH ×2 (17:52→20:55)
[2021-09-16] MEDS ORDERED: LORazepam 2 MG/ML INJ IV STA (18:16)
[2021-09-16] MEDS: PANTOPRAZOLE 40 MG/10 ML VIAL IVP SCH (20:55)
[2021-09-17] MEDS: HEPARIN SODIUM,PORCINE/PF 5,000 UNIT/0.5 ML SYRINGE SQ SCH ×2 (00:41→08:46)
[2021-09-17] MEDS: SODIUM CHLORIDE 0.9% 1,000 ML IV SCH ×2 (00:41→12:24)
[2021-09-17] MEDS ORDERED: LEVOTHYROXINE 75 MCG TAB PO SCH (06:30)
[2021-09-17 07:50] VITALS: BP 138/86; PULSE 68; RESP 16; TEMP 97.6
--- NOTE | 2021-09-17 08:21 | P.CRDCN ---
History of Present Illness History of present illness: HISTORY OF PRESENTING ILLNESS This is a pleasant 61-year-old female past medical history significant for GERD, hypertension, hypothyroidism. 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 We have been asked to see in consultation for chest pain. Patient presents to the emergency department with complaints of chest discomfort. Chest pain started 09/15/21. Located in epigastric region. It lasted for 24 hours. She describes it as a pressure. It is nonexertional. It did radiate to her left breast. She continues to have some mild chest discomfort and epigastric reason describes it as a numb feeling. No specific aggravating or alleviating factors. She does endorse having reflux and heart burn over the past month. Prior to her pain starting she states she had cereal and coffee. She did have some associated nausea. She denies shortness of breath, palpitations, vomiting, diaphoresis, l ightheadedness, syncope. She denies history of CAD, PR, stroke, diabetes. She is unsure of her family history. She denies any tobacco use. DIAGNOSTICS EKG reveals sinus rhythm, heart rate 68, T wave inversion in V2, non-specific ST in aVL, poor R-wave progression, no acute ST-T wave abnormalities Telemetry tracings indicate sinus mechanism Gallbladder ultrasound with no acute findings, no gallstones Chest xray no acute cardio pulmonary process Laboratory reviewed, CBC unremarkable, d-dimer negative, troponin negative 3, proBNP 34, sodium 138, potassium 4.1, BUN 14, serum creatinine 0.7 Current home medications include hydrochlorothiazide 25 mg daily, amlodipine 10 mg daily, Synthroid, Pristiq, Pepcid. REVIEW OF SYSTEMS At the time of my exam: CONSTITUTIONAL: Denies fever or chills. CARDIOVASCULAR: +dull/numb chest pain, Denies shortness of breath, orthopnea, PND or palpitations. RESPIRATORY: Denies cough. GASTROINTESTINAL: Denies abdominal pain, diarrhea, constipation, nausea or vomiting. MUSCULOSKELETAL: Denies myalgias. NEUROLOGIC: Denies numbness, tingling, headache or weakness. ENDOCRINE: Denies fatigue, weight change, polydipsia or polyurina. GENITOURINARY: Denies burning, hematuria or urgency with micturation. HEMATOLOGIC: Denies history of anemia or bleeding. PHYSICAL EXAMINATION Blood pressure 138/86, heart rate 68, afebrile, oxygen saturation is 96% on room air CONSTITUTIONAL: No apparent distress. HEENT: Head is normocephalic. Pupils are equal, round. Sclerae anicteric. Mucous membranes of the mouth are moist. No JVD. No carotid bruit. CHEST EXAMINATION: Lungs are clear to auscultation. No chest wall tenderness is noted on palpation or with deep breathing. HEART EXAMINATION: Regular rate and rhythm. S1, S2 heard. No murmurs, gallops or rub. ABDOMEN: Soft, nontender. Positive bowel sounds. EXTREMITIES: 2+ peripheral pulses, no lower extremity edema and no calf tenderness. SKIN: warm, dry NEUROLOGIC EXAMINATION: Patient is awake, alert and oriented x3. ASSESSMENT Epigastric Pain, acute coronary syndrome has been ruled out History of GERD Hypertension Hyperthyroidism Obesity BMI 40 PLAN An acute coronary event has been ruled out with no EKG evidence of ischemia and negative cardiac enzymes. Lipid panel pending Perform stress echo test to assess for stress induced cardiac ischemia. If abnormal will consider coronary angiography. If stress test is negative, no further inpatient workup for chest discomfort from a cardiology perspective. Thank you kindly for this consultation. Nurse practitioner note has been reviewed by physician. Signing provider agrees with the documented findings, assessment, and plan of care. Past Medical History Past Medical History: GERD/Reflux, Hypertension, Sleep Apnea/CPAP/BIPAP, Thyroid Disorder Additional Past Medical History / Comment(s): PAUL with Cpap use, diverticular disease, migraines, hypothyroid. History of Any Multi-Drug Resistant Organisms: None Reported Past Surgical History: Hysterectomy, Tubal Ligation Additional Past Surgical History / Comment(s): D&C, surgery for ectopic /ovarian cyst, uterine ablation, vaginal hysterectomy with cystocele/rectocele, colonoscopy Past Anesthesia/Blood Transfusion Reactions: Postoperative Nausea & Vomiting (PONV) Additional Past Anesthesia/Blood Transfusion Reaction / Comment(s): Severe PONV. Clausterphobia. Past Psychological History: Anxiety, Depression, Panic Disorder Additional Psychological History / Comment(s): Pt resides alone. She is independent. Smoking Status: Never smoker Past Alcohol Use History: Occasional Past Drug Use History: None Reported - Past Family History Mother Family Medical History: No Reported History Additional Family Medical History / Comment(s): Mother is 93 yrs old and healthy Father History Unknown: Yes Additional Family Medical History / Comment(s): Father in a MVA when pt was 5 yrs old. Medications and Allergies Home Medications Medication Instructions Recorded Confirmed Type Desvenlafaxine Succinate [Pristiq] 50 mg PO DAILY 11/03/17 09/16/21 History amLODIPine [Norvasc] 10 mg PO DAILY 11/03/17 09/16/21 History Famotidine [Pepcid AC] 10 mg PO BID PRN 09/16/21 09/16/21 History Levothyroxine Sodium [Synthroid] 75 mcg PO DAILY 09/16/21 09/16/21 History hydroCHLOROthiazide [Hydrodiuril] 25 mg PO DAILY 09/16/21 09/16/21 History Allergies Allergy/AdvReac Type Severity Reaction Status Date / Time ampicillin Allergy Rash/Hives Verified 09/16/21 11:08 codeine AdvReac Nausea & Verified 09/16/21 11:08 Vomiting steroid AdvReac "made me Uncoded 09/16/21 08:41 aggresive" Physical Exam Vitals: Vital Signs Temp Pulse Pulse Resp BP BP Pulse Ox 09/17/21 02:00 70 18 09/17/21 01:56 97.8 F 74 16 120/73 96 09/16/21 21:00 70 18 09/16/21 19:56 97.7 F 86 17 153/81 98 09/16/21 19:00 65 143/82 09/16/21 16:58 64 18 143/82 98 09/16/21 16:00 62 123/83 09/16/21 10:31 97.4 F L 61 18 123/83 98 09/16/21 08:38 96.9 F L 84 18 134/87 98 Intake and Output 09/16/21 09/17/21 09/17/21 22:59 06:59 14:59 Intake Total 0 Balance 0 Intake: Oral 0 Other: Voiding Method Toilet # Voids 1 Weight 99.79 kg Results 09/16/21 09:21 09/16/21 09:21 Cardiac Enzymes 09/16/21 09/16/21 09/16/21 Range/Units 09:21 09:21 16:08 AST 31 (14-36) U/L Troponin I <0.012 <0.012 (0.000-0.034) ng/mL 09/16/21 Range/Units 18:41 AST (14-36) U/L Troponin I <0.012 (0.000-0.034) ng/mL Coagulation 09/16/21 Range/Units 09:21 PT 10.4 (9.0-12.0) sec APTT 24.4 (22.0-30.0) sec CBC 09/16/21 Range/Units 09:21 WBC 8.6 (3.8-10.6) k/uL RBC 4.58 (3.80-5.40) m/uL Hgb 13.4 (11.4-16.0) gm/dL Hct 41.5 (34.0-46.0) % Plt Count 266 (150-450) k/uL Comprehensive Metabolic Panel 09/16/21 Range/Units 09:21 Sodium 138 (137-145) mmol/L Potassium 4.1 (3.5-5.1) mmol/L Chloride 104 (98-107) mmol/L Carbon Dioxide 24 (22-30) mmol/L BUN 14 (7-17) mg/dL Creatinine 0.70 (0.52-1.04) mg/dL Glucose 88 (74-99) mg/dL Calcium 8.8 (8.4-10.2) mg/dL AST 31 (14-36) U/L ALT 24 (4-34) U/L Alkaline Phosphatase 114 (38-126) U/L Total Protein 7.5 (6.3-8.2) g/dL Albumin 4.3 (3.5-5.0) g/dL Current Medications Generic Name Dose Route Start Last Admin Trade Name Freq PRN Reason Stop Dose Admin Acetaminophen 650 mg 09/16/21 16:36 Acetaminophen Tab 325 Mg Tab PO Q4HR PRN Fever and/ or Mild Pain Amlodipine Besylate 10 mg 09/17/21 09:00 Amlodipine 10 Mg Tab PO DAILY [facility] Aspirin 325 mg 09/17/21 09:00 Aspirin 325 Mg Tab PO DAILY [facility] Desvenlafaxine Succinate 50 mg 09/17/21 09:00 Desvenlafaxine Succinate 50 Mg Tab.Er.24h PO DAILY [facility] Famotidine 10 mg 09/16/21 16:34 Famotidine 20 Mg Tab PO BID PRN GERD Heparin Sodium (Porcine) 5,000 unit 09/17/21 00:00 09/17/21 00:41 Heparin Sodium,Porcine/Pf 5,000 Unit/0.5 Ml Syringe SQ 5,000 unit Q8HR ELY Administration Sodium Chloride 1,000 mls @ 130 mls/hr 09/16/21 15:30 09/17/21 00:41 Saline 0.9% IV 130 mls/hr .[id number] ELY Administration Levothyroxine Sodium 75 mcg 09/17/21 06:30 09/17/21 06:07 Levothyroxine 75 Mcg Tab PO 75 mcg DAILY@0630 ELY Administration Morphine Sulfate 4 mg 09/16/21 17:29 Morphine Sulfate 4 Mg/Ml Syringe IV Q4HR PRN Severe Pain Nitroglycerin 0.4 mg 09/16/21 15:16 Nitroglycerin Sl Tabs 0.4 Mg Tab SUBLINGUAL Q5M PRN Chest Pain Pantoprazole Sodium 40 mg 09/16/21 21:00 09/16/21 20:55 Pantoprazole 40 Mg/10 Ml Vial IVP 40 mg BID ELY Administration Prochlorperazine Edisylate 10 mg 09/16/21 17:08 09/16/21 17:47 Prochlorperazine Inj 10 Mg/2 Ml Vial IVP 10 mg Q6H PRN Administration Nausea Sucralfate 1 gm 09/16/21 17:30 09/16/21 20:55 Sucralfate 1 Gm Tab PO 1 gm ACHS ELY Administration Intake and Output 09/16/21 09/17/21 09/17/21 22:59 06:59 14:59 Intake Total 0 Balance 0 Intake: Oral 0 Other: Voiding Method Toilet # Voids 1 Weight 99.79 kg 09/16/21 09:21 09/16/21 09:21
[2021-09-17] MEDS: PANTOPRAZOLE 40 MG/10 ML VIAL IVP SCH (08:45)
[2021-09-17] MEDS: SUCRALFATE 1 GM TAB PO SCH ×2 (08:46→12:28)
[2021-09-17] MEDS ORDERED: ASPIRIN 325 MG TAB PO SCH (09:00)
[2021-09-17] MEDS ORDERED: ASPIRIN 81 MG PO SCH (09:00)
[2021-09-17] MEDS ORDERED: amLODIPine 10 MG TAB PO SCH (09:00)
[2021-09-17] MEDS ORDERED: hydroCHLOROthiazide 25 MG TAB PO SCH (09:00)
[2021-09-17] MEDS ORDERED: DESVENLAFAXINE SUCCINATE 50 MG TAB.ER.24H PO SCH (09:00)
[2021-09-17 09:14] LABS: HCT 39.5 % (37.2-46.3); HGB 12.5 g/dL (12.0-15.0); MCH 28.9 pg (27.0-32.0); MCHC 31.6 g/dL (32.0-37.0); MCV 91.2 fL (80.0-97.0); Mean Platelet Volume 10.8 fL (9.5-12.2); NRBC Per 100 WBC 0 /100 WBCS (0.0-0.0); Platelet Count 249 X 10*3/uL (140-440); RBC 4.33 X 10*6/uL (4.10-5.20); RDW 14.7 % (11.5-14.5); WBC 7.43 X 10*3/uL (4.50-10.00)
[2021-09-17 09:27] LABS: ALT 23 U/L (8-44); AST 18 U/L (13-35); African American GFR (CKD) 108.2 (60.0-200.0); Albumin 4.1 g/dL (3.8-4.9); Alkaline Phosphatase 118 U/L (41-126); BUN/Creat Ratio 18.16 Ratio (12.00-20.00); Blood Urea Nitrogen 12.8 mg/dL (9.0-27.0); Calcium 8.9 mg/dL (8.7-10.3); Chloride 106 mmol/L (96-109); Chol/HDL Ratio 5.35 Ratio; Globulin 2.4 g/dL (1.6-3.3); Glucose 90 mg/dL (70-110); LDL Cholesterol,Calculated 173.7 mg/dL (0.0-131.0); Non-African American GFR(CKD) 93.4 (60.0-200.0); Sodium 141 mmol/L (135-145); Total Protein 6.5 g/dL (6.2-8.2)
[2021-09-17 09:28] LABS: Magnesium 2.6 mg/dL (1.5-2.4)
--- NOTE | 2021-09-17 13:13 | P.DS ---
Providers Date of admission: 09/16/21 15:16 Expected date of discharge: 09/17/21 Attending physician: Anushka Plata, DO Consults: 09/16/21 15:16 Consult Physician Routine Consulting Provider: Latrice Sutherland Consult Reason/Comments: Abdominal pain Do you want consulting provider notified?: Yes Consult Physician Urgent Consulting Provider: Jey Gray Consult Reason/Comments: Atypical chest pain Do you want consulting provider notified?: Yes Primary care physician: Ashlee Celestin Hospital Course: Discharge Diagnosis: Epigastric pain, patient discharged home on daily Protonix as well as Carafate and to follow up outpatient with gastroenterology. Chest pain, acute coronary event ruled out. History of GERD Hypertension, Monitor vital signs and continue daily medication regimen with amlodipine. Hypothyroidism, Continue daily medication regimen with levothyroxine 75 g each morning. Hospital Course: Patient is a very pleasant 61-year-old female with a past medical history of hypertension, hypothyroidism, anxiety and GERD. She presented to the emergency department with epigastric pain/discomfort radiating beneath left breast. Patient reports she has a history of gastric reflux, but states she has not had a problem with this in many many years. She states over the past 4-5 weeks her heartburn and acid reflux has literally "Blown up". Patient states over the past 4-5 weeks she has been getting significant reflux and heartburn daily. Patient reports yesterday morning starting out like an atypical morning, states that she ate a bowl of cereal and drinks some coffee and went to work. Patient states that shortly after 6 AM she began having the significant sharp burning pain to the mid epigastric region. Patient reports this pain has been continuous and accompanied by nausea. Patient describes this pain as a burning sensation that will not go away. She states this pain feels as if it goes straight through to her back and just beneath her left breast. She denies any fevers, chills, diaphoresis, episodes of vomiting, excessive belching, chest pain, palpitations, shortness of breath, or cough. Patient denies history of previously known ulcers. Denies palpation or movement making this pain worse, pt unclear whether or not pain increases with oral intake. In the emergency department, patient was seen and fully evaluated. EKG completed revealing normal sinus rhythm at 68 bpm with no noted T-wave or ST abnormalities. CBC, coags, CMP, lipase, d-dimer, and troponin all unremarkable. Chest x-ray negative for acute cardiopulmonary process. Abdominal ultrasound the gallbladder negative showing no evidence of gallstones or signs of acute c holecystitis. Patient received a GI cocktail in ER at 11:00 this morning in which she reports did "take the edge off" her pain. Patient is currently admitted under our services with consultation to cardiology and gastroenterology. Patient monitored overnight. She was started on daily Protonix as well as Carafate. She underwent a echocardiogram and stress test in which cardiology reported no abnormalities and negative stress test. Lipid profile did reveal an elevated triglyceride level of 152 and total cholesterol of 251 as well as elevated LDL of 173.7. Patient started on atorvastatin 40 mg nightly. Patient is medically stable and to follow up outpatient cardiology, gastroenterology, and PCP. Patient provided with prescriptions for Protonix, Carafate, and atorvastatin. Physical exam: Vital signs reviewed and stable. General: Nontoxic, no distress and appears stated age. Derm: Skin warm and dry, normal coloration for ethnicity. Head: Atraumatic, normocephalic and symmetric. Eyes: EOMs intact, no lid lag, and anicteric sclera Mouth: no lip lesions, mucus membranes moist Cardiovascular: regular rate and rhythm with normal S1S2, no murmur, positive posterior tibial pulses bilaterally, and cap refill < 2 seconds. Lungs: Respirations even, regular, and unlabored on room air. Lungs CTA bilaterally, no rhonchi, no rales, no wheezing, and no accessory muscle usage. Abdominal: soft obese abdomen , nontender to palpation, no guarding, no appreciable organomegaly Ext: ROM intact. No gross muscle atrophy, patient with slight bilateral lower extremity edema (reports chronic denies any increase or changes in swelling in years) no contractures Neuro: Speech clear, face symmetrical and CN II-XII grossly intact with no noted focal neuro deficits Psych: Alert and oriented to person, place, time, and situation. Appropriate and pleasant affect. A total of 37 minutes of time were spent preparing this complex discharge summa ry. I reviewed the documentation as provided by the JEFFERY above, who is the original author of this note. I agree with the documented assessment and plan, with the following changes: none Patient Condition at Discharge: Stable Plan - Discharge Summary Discharge Rx Participant: No New Discharge Prescriptions: New Pantoprazole Sodium [Protonix] 40 mg PO DAILY 30 Days #30 tab Atorvastatin [Lipitor] 40 mg PO HS 30 Days #30 tablet Sucralfate [Carafate] 1 gm PO ACHS 30 Days #120 tab Continue amLODIPine [Norvasc] 10 mg PO DAILY Desvenlafaxine Succinate [Pristiq] 50 mg PO DAILY Levothyroxine Sodium [Synthroid] 75 mcg PO DAILY hydroCHLOROthiazide [Hydrodiuril] 25 mg PO DAILY Discontinued Famotidine [Pepcid AC] 10 mg PO BID PRN PRN Reason: GERD Discharge Medication List Desvenlafaxine Succinate [Pristiq] 50 mg PO DAILY 11/03/17 [History] amLODIPine [Norvasc] 10 mg PO DAILY 11/03/17 [History] Levothyroxine Sodium [Synthroid] 75 mcg PO DAILY 09/16/21 [History] hydroCHLOROthiazide [Hydrodiuril] 25 mg PO DAILY 09/16/21 [History] Atorvastatin [Lipitor] 40 mg PO HS 30 Days #30 tablet 09/17/21 [Rx] Pantoprazole Sodium [Protonix] 40 mg PO DAILY 30 Days #30 tab 09/17/21 [Rx] Sucralfate [Carafate] 1 gm PO ACHS 30 Days #120 tab 09/17/21 [Rx] Follow up Appointment(s)/Referral(s): Socrates Marin MD [STAFF PHYSICIAN] - 2 Weeks (will call patient to schedule) Ashlee Celestin III, MD [Primary Care Provider] - 1-2 days Latrice Sutherland MD [STAFF PHYSICIAN] - 11/05/21 3:45 pm Patient Instructions/Handouts: Chest Pain (DC) Activity/Diet/Wound Care/Special Instructions: Activity: As tolerated. Take breaks as needed. Diet: Heart healthy and carb consistent diet. Avoid salts, or foods with hidden salts such as canned or boxed foods and frozen dinners. Extra salt makes your heart work harder and traps the fluid in your body for longer. Special Instructions: Take all of your medications as directed and remember to keep all of your doctor's appointments and follow-up as needed. Please take medications as instructed and he will need to schedule outpatient follow-up with Dr. Sutherland, gizzard puller as recommended for continued monitoring and follow-up. Thank you for allowing us to participate in your care, it was truly a pleasure having you for our patient!!! Discharge Disposition: HOME SELF-CARE
--- NOTE | 2021-09-17 14:27 | P.CONS ---
History of Present Illness - Reason for Consult Consult date: 09/17/21 Epigastric pain Requesting physician: Baljit Flores - Chief Complaint Chest pain - History of Present Illness This is 61-year-old female who presented to the emergency department with complaints of chest pain. She has a past medical history of anxiety and hypertension. She has undergone cardiology workup with a normal stress test. Gastroenterology was consulted for epigastric pain. Patient states she does take ibuprofen 2 tablets twice a day as needed and take this weekly. She has a history of acid reflux but no previous EGD. She does state she takes Pepcid as needed. She has been started on Protonix and Carafate. Denies any nausea or vomiting. Denies any decreased appetite or weight loss. Most of the pain is in the left side of her chest/rib cage. Ultrasound of gallbladder statesNo gallstones or ultrasound evidence of acute cholecystitis. Review of Systems REVIEW OF SYSTEMS: CARDIOPULMONARY: Chest pain, no shortness of breath. Gastrointestinal: Epigastric pain No nausea or vomiting. No hematemesis, coffee-ground emesis. No rectal bleeding, or melena. GENITOURINARY: No dysuria or hematuria. MUSCULOSKELETAL: Reports normal range of motion., Joint pain. SKIN: No rashes. No jaundice. ENDOCRINE: No chills, fevers. No excessive weight gain or loss. No polydipsia or polyuria. PSYCHIATRIC: Unremarkable. NEUROLOGY: No change in mental status. Denies dizziness, headache. ENT: Vision unremarkable. CONSTITUTIONAL: No recent weight loss. No fever, chills, night sweats. Past Medical History Past Medical History: GERD/Reflux, Hypertension, Sleep Apnea/CPAP/BIPAP, Thyroid Disorder Additional Past Medical History / Comment(s): PAUL with Cpap use, diverticular disease, migraines, hypothyroid. History of Any Multi-Drug Resistant Organisms: None Reported Past Surgical History: Hysterectomy, Tubal Ligation Additional Past Surgical History / Comment(s): D&C, surgery for ectopic /ovarian cyst, uterine ablation, vaginal hysterectomy with cystocele/rectocele, colonoscopy Past Anesthesia/Blood Transfusion Reactions: Postoperative Nausea & Vomiting (PONV) Additional Past Anesthesia/Blood Transfusion Reaction / Comm: Severe PONV. Clausterphobia. Past Psychological History: Anxiety, Depression, Panic Disorder Additional Psychological History / Comment(s): Pt resides alone. She is independent. Smoking Status: Never smoker Past Alcohol Use History: Occasional Past Drug Use History: None Reported - Past Family History Mother Family Medical History: No Reported History Additional Family Medical History / Comment(s): Mother is 93 yrs old and healthy Father History Unknown: Yes Additional Family Medical History / Comment(s): Father in a MVA when pt was 5 yrs old. Medications and Allergies Home Medications Medication Instructions Recorded Confirmed Type Desvenlafaxine Succinate [Pristiq] 50 mg PO DAILY 11/03/17 09/16/21 History amLODIPine [Norvasc] 10 mg PO DAILY 11/03/17 09/16/21 History Levothyroxine Sodium [Synthroid] 75 mcg PO DAILY 09/16/21 09/16/21 History hydroCHLOROthiazide [Hydrodiuril] 25 mg PO DAILY 09/16/21 09/16/21 History Atorvastatin [Lipitor] 40 mg PO HS 30 Days #30 tablet 09/17/21 Rx Pantoprazole Sodium [Protonix] 40 mg PO DAILY 30 Days #30 tab 09/17/21 Rx Sucralfate [Carafate] 1 gm PO ACHS 30 Days #120 tab 09/17/21 Rx Allergies Allergy/AdvReac Type Severity Reaction Status Date / Time ampicillin Allergy Rash/Hives Verified 09/16/21 11:08 codeine AdvReac Nausea & Verified 09/16/21 11:08 Vomiting steroid AdvReac "made me Uncoded 09/16/21 08:41 aggresive" Physical Exam Vitals: Vital Signs Temp Pulse Pulse Resp BP BP Pulse Ox 09/17/21 07:36 92 L 09/17/21 07:00 97.6 F 68 16 138/86 94 L 09/17/21 02:00 70 18 09/17/21 01:56 97.8 F 74 16 120/73 96 09/16/21 21:00 70 18 09/16/21 19:56 97.7 F 86 17 153/81 98 09/16/21 19:00 65 143/82 09/16/21 16:58 64 18 143/82 98 09/16/21 16:00 62 123/83 09/16/21 10:31 97.4 F L 61 18 123/83 98 Intake and Output 09/16/21 09/17/21 09/17/21 22:59 06:59 14:59 Intake Total 0 Balance 0 Intake: Oral 0 Other: Voiding Method Toilet # Voids 1 Weight 99.79 kg General appearance: The patient is alert, oriented, appears in no acute distres s. HET: Head is normocephalic and atraumatic. Conjunctiva pink. Sclera anicteric. Neck: Supple without lymphadenopathy. Trachea midline. Heart: S1 S2. Regular rate and rhythm. Lungs: Clear to auscultation. Abdomen: Soft, no abdominal tenderness, point tenderness 12th rib left side, nondistended with bowel sounds. No guarding or rigidity. Skin: No rashes. No jaundice. Extremities: Normal skin color and turgor. No pedal edema. Neurological: No focal deficits. Alert and oriented x3. Results CBC & Chem 7: 09/17/21 05:47 09/17/21 05:47 Labs: Abnormal Lab Results - Last 24 Hours (Table) 09/16/21 Range/Units 17:24 Urine Appearance Cloudy H (Clear) Ur Leukocyte Esterase Moderate H (Negative) Urine WBC 11 H (0-5) /hpf Ur Squamous Epith Cells 10 H (0-4) /hpf Urine Mucus Rare H (None) /hpf Microbiology - Last 24 Hours (Table) 09/16/21 17:24 Urine Culture - Preliminary Urine,Voided US - abdomen: report reviewed (No gallstones or ultrasound evidence of acute cholecystitis) Assessment and Plan (1) Abdominal pain Narrative/Plan: 61-year-old female who came in with chest pain. She was seen and cleared by cardiology for acute coronary event. Gastroenterology was consulted for epigastric pain. Patient does have a history of NSAID use, no history of peptic ulcer disease. She does have occasional acid reflux but takes Pepcid as needed. She denies any nausea or vomiting, hematemesis. No previous EGD or colonoscopy. She's been started on Protonix twice a day and Carafate. No plans on endoscopic evaluation at this time the pain is more consistent with a co stochondritis. Will treat with medication and if there is no improvement patient instructed to follow-up with gastroenterology outpatient as needed. Current Visit: Yes Status: Acute Code(s): R10.9 - UNSPECIFIED ABDOMINAL PAIN SNOMED Code(s): 68806163 (2) Atypical chest pain Current Visit: Yes Status: Acute Code(s): R07.89 - OTHER CHEST PAIN SNOMED Code(s): 078205556 Plan: 1. Continue symptomatic and supportive care 2. Agree with Protonix twice a day 3. Carafate as ordered 4. Symptoms more consistent with costochondritis 5. No plan for an endoscopic evaluation 6. Patient instructed if symptoms do not improve to follow-up with gastroenterology Thank you for this consultation, the patient is cleared by gastroenterology for discharge. Dr. Adelita Sutherland I agree with the dictator's note, documented as a scribe by Lashaun Shipley.
--- NOTE | 2021-09-18 13:39 | ECHOS ---
STRESS ECHOCARDIOGRAM INDICATIONS: Chest pain. BASELINE HEART RATE: 84 BASELINE BLOOD PRESSURE: 139/63 MAXIMUM HEART RATE: 156 MAXIMUM BLOOD PRESSURE: 212/71 85% MPHR: 136 100% MPHR: 160 METS: 6.5 MAXIMUM STAGE REACHED: 2 TOTAL EXERCISE TIME: 5 min. 32 sec CLINICAL INFORMATION: STRESS DATA: Heart rate is 84, pressure 139/63 mmHg. Baseline EKG showed sinus mechanism. The patient exercised on the treadmill according to Brett protocol for a total of 5 minutes and 32 seconds and achieved 6.5 METS. Max heart rate was 156, which is about 98% of maximum predicted heart rate, and maximum pressure was 212/71 mmHg. Clinically the patient did not have any symptoms of chest pain or chest discomfort during the testing or on recovery. The EKG did not show any significant ST or T-wave abnormalities concerning for ischemia. Echocardiogram images from parasternal long-axis view, parasternal short-axis view, apical 4-chamber and apical 2-chamber views were obtained as the baseline images at the peak of the heart rate as well as on recovery. The echo did not show any evidence of wall motion abnormalities concerning for ischemia. CONCLUSION: 1. Good exercise tolerance. 2. Normal EKG in response to exercise. 3. Normal echocardiogram in response to exercise. MMODL / IJN: [id number] /
== END 2021-09-17 13:35 | disposition home or self-care (01) ==
LOC: EC 08:36 → 6NMEDSUR 15:16
PROVIDERS: ADMIT Internal Medicine; ATTEND Internal Medicine
DX: K21.9 Gastro-esophageal reflux disease without esophagitis (principal); I10 Essential (primary) hypertension; F41.9 Anxiety disorder, unspecified; F60.9 Personality disorder, unspecified; Z98.51 Tubal ligation status; E03.9 Hypothyroidism, unspecified; Z98.890 Other specified postprocedural states; Z79.890 Hormone replacement therapy; Z79.899 Other long term (current) drug therapy; Z88.5 Allergy status to narcotic agent; Z88.0 Allergy status to penicillin; Z88.8 Allergy status to other drugs, medicaments and biological substances
CPT/HCPCS: 96376; 96372; 96375 ×2; 96374; 99285; 36415; 93005; 93351; 85379; 83880; 80061; 80053 ×2; 83690; 83735 ×2; 84484; 85025; 85027; 85610; 85730; 81001; 87086; 71046; 76705; G0378 ×2; J2060; J0780; J1885; C9113 ×2; J1644

== ENCOUNTER → 2022-04-29 | Outpatient (CLI) | payer OTHER ==
--- NOTE | 2022-04-29 10:46 | P.PN ---
Subjective DATE: 04/29/2022 FOLLOW UP VISIT. Patient with obstructive sleep apnea hypopnea syndrome return to sleep center for follow-up visit. Information from previous visit have been reviewed. Patient is using PAP equipment every night for the whole night, getting PAP supplies in time. The patient does not have significant problems with the mask, PAP unit and humidification. [place] sleepiness scale is 4. I checked information from PAP unit. PAP unit pressure 5-12, average 11.2 cm H2O. Usage is 70% for more then 4 hours, average 6 and three-quarter hours per night. Leak is 6.4 l/m, which is in acceptable range. Apnea Hypopnea Index is 2.3, which is normal. MEDICATIONS:1. Amlodipine 2. Pristiq 3. Thyroid supplement During physical exam: GENERAL: A pleasant patient without any distress. VITAL SIGNS: BP 122/79, HR 76, RR 16 , weight 239.2, temperature 97.7, oxygen saturation at room air 97 % . HEENT: PERRLA, EOMI.low position of soft palate, Mallapati3-4 . NECK: Supple. No JVD. LUNGS: Clear to percussion and to auscultation. Good air exchange. No wheezing or rhonchi. HEART: S1, S2 regular. ABDOMEN: Soft and nontender. Slightly obese EXTREMITIES: No clubbing or cyanosis. TOUR ACTOR: Awake, alert, and oriented x3. No focal deficit. Impressions: 1. Obstructive sleep apnea-hypopnea syndrome. Patient demonstrated borderline compliance with treatment, benefiting from treatment. 2. Hypertension. 3. Hypothyroidism. 4. History of knee arthritis. 5. Headaches. 6. Status post hysterectomy. 7. mild obesity Plan: 1. Continue using PAP equipment every night for the whole night. 2. To change air filter at least 1-2 times per month. 3. PAP unit should stay lower then position of the head. 4. Advised patient to remove all remaining water from humidifier canister daily and make it dry after each usage. Refill canister with fresh distilled water before each usage. 5. Sleep hygiene with regular time in bed for at least 8 hours. 6. Precautions related to driving. No driving if feel any sleepiness. 7. I will maintain prescription for PAP supplies including mask, tube, filters. 8. Follow up visit in 6 months or earlier if patient has any problems. 9. Watching and losing weight. Thank you very much for allowing me to participate in the management of your patient. Cruz Samuels MD, PhD, FAASM. Diplomat of [employer], Sleep Medicine Board by [employer] [facility] [place]
== END ==
LOC: SLEEP 09:57
PROVIDERS: ATTEND Internal Medicine
DX: G47.33 Obstructive sleep apnea (adult) (pediatric) (principal); Z99.89 Dependence on other enabling machines and devices; I10 Essential (primary) hypertension; E03.9 Hypothyroidism, unspecified; R51.9 Headache, unspecified; Z90.710 Acquired absence of both cervix and uterus; E66.8 Other obesity; Z87.39 Personal history of other diseases of the musculoskeletal system and connective tissue
CPT/HCPCS: 99212

== ENCOUNTER → 2022-11-04 | Outpatient (CLI) | payer OTHER ==
--- NOTE | 2022-11-04 11:27 | P.PN ---
Subjective DATE: 11/04/2022 FOLLOW UP VISIT. Patient with obstructive sleep apnea hypopnea syndrome return to sleep center for follow-up visit. Information from previous visit have been reviewed. Patient is using PAP equipment every night for the whole night, getting PAP supplies in time. The patient does not have significant problems with the mask, PAP unit and humidification. [place] sleepiness scale is 6, which is normal. I checked information from PAP unit. PAP unit pressure 5-12, average 11.5 cm H2O. Usage is 73 % for more then 4 hours, average 7.5 hours per night. Leak is 8.2 l/m, which is in acceptable range. Apnea Hypopnea Index is 2.2, which is normal. MEDICATIONS:1. Thyroid supplement 2. Pristiq 3. Amlodipine During physical exam: GENERAL: A pleasant patient without any distress. VITAL SIGNS: BP 122/76, HR 72, RR 12, weight 250.0, temperature 97.5, oxygen saturation at room air 98 % . HEENT: PERRLA, EOMI.low position of soft palate, Mallapati 34. NECK: Supple. No JVD. LUNGS: Clear to percussion and to auscultation. Good air exchange. No wheezing or rhonchi. HEART: S1, S2 regular. ABDOMEN: Soft and nontender. Slightly obese EXTREMITIES: No clubbing or cyanosis. LIVESTOCK SPECULATOR: Awake, alert, and oriented x3. No focal deficit. Impressions: 1. Obstructive sleep apnea-hypopnea syndrome. Patient demonstrated good compliance with treatment, benefiting from treatment. 2. Obesity, BMI 44.4. Patient increased her wait on 11 pounds comparing with previous visit. 3. Hypertension. 4. Hypothyroidism. 5. History of headaches. 6. History of knee arthritis. 7. Status post hysterectomy. Plan: 1. Continue using PAP equipment every night for the whole night. 2. To change air filter at least 1-2 times per month. 3. PAP unit should stay lower then position of the head. 4. Advised patient to remove all remaining water from humidifier canister daily and make it dry after each usage. Refill canister with fresh distilled water before each usage. 5. Sleep hygiene with regular time in bed for at least 8 hours. 6. Precautions related to driving. No driving if feel any sleepiness. 7. I will maintain prescription for PAP supplies including mask, tube, filters. 8. Watching and losing weight. 9. Follow up visit in 6 months or earlier if patient has any problems. Thank you very much for allowing me to participate in the management of your patient. Cruz Samuels MD, PhD, FAASM. Diplomat of [employer], Sleep Medicine Board by [employer] [facility] [place]
== END ==
LOC: SLEEP 10:40
PROVIDERS: ATTEND Internal Medicine
DX: G47.33 Obstructive sleep apnea (adult) (pediatric) (principal); E66.9 Obesity, unspecified; Z68.41 Body mass index [BMI] 40.0-44.9, adult; I10 Essential (primary) hypertension; E03.9 Hypothyroidism, unspecified; R51.9 Headache, unspecified; Z96.653 Presence of artificial knee joint, bilateral; Z98.890 Other specified postprocedural states; Z99.89 Dependence on other enabling machines and devices; Z88.0 Allergy status to penicillin; Z88.6 Allergy status to analgesic agent; Z88.5 Allergy status to narcotic agent
CPT/HCPCS: 99212